=== PATIENT | female | born 1975 | race Caucasian/White ===

== ENCOUNTER → 2016-06-17 | Outpatient (CLI) | payer OTHER ==
--- NOTE | 2016-06-17 18:41 | MA ---
Screening Digital Mammogram, With iCAD June 17, 2016 Indication: Routine screening. Baseline. Technique: Standard cephalocaudal and mediolateral oblique projections are obtained. This examinati on was processed with the iCAD computer-aided detection system. Comparison: None. Breast Density: Type C. Findings: CAD was reviewed. A focal asymmetry, with minimal architectural distortion, resides in th e inner right breast on the CC view, and an asymmetry, with minimal architectural distortion, resides in the outer left breast on the CC view. No definite correlate on the MLO views. No malignant-type calcification. Impression: 1. Bilateral asymmetries with architectural distortion versus superimposed fibroglandular tissue, in the inner right and outer left breast. 2. BI-RADS 0: Needs additional imaging evaluation. Recommendation: Bilateral spot-compressed CC and true lateral views. If asymmetry or architectural distortion persists, proceed with rolled views and ultrasound at the discretion of the interpreting r adiologist. [facility] will send a result letter to the patient. The patient's information is entered into a reminder system with a target due date for her next mammo gram. E:ned
== END ==
LOC: BMCIMAGING 15:09
DX: Z12.31 Encounter for screening mammogram for malignant neoplasm of breast (principal)
CPT/HCPCS: G0202

== ENCOUNTER → 2016-06-30 | Outpatient (CLI) | payer OTHER ==
--- NOTE | 2016-06-30 14:07 | MA ---
Diagnostic Digital Bilateral Mammogram History: Bilateral asymmetries. Comparison: Screening mammogram June 17, 2016. Technique: Bilateral spot views, true lateral views and off midline CC views by 5 degrees. Breast Density: C Findings: Asymmetries do not persist and are likely related to overlapping normal parenchymal structu res. Impression: Negative bilateral mammography. BI-RADS: Category 1 . Negative. Recommendation: Return to screening mammography of both breasts in June 2017. Results and recommendation communicated to the patient at the time of the examination.
== END ==
LOC: BMCIMAGING 13:24
DX: R92.8 Other abnormal and inconclusive findings on diagnostic imaging of breast (principal)
CPT/HCPCS: G0204